=== PATIENT | male | born 1960 | race Caucasian/White ===

== ENCOUNTER 2021-11-06 04:05 | Emergency (ER) | payer OTHER ==
[~2021-11-06] VITALS: Ht 180.3 cm; Wt 99.8 kg
[2021-11-06 04:37] VITALS: BP_SYST 154
--- NOTE | 2021-11-06 04:42 | NUR ---
Patient triaged and placed in waiting room. VS checked and patient appears in no acute distress at this time. Accompanied by self , awaiting available bed, and MD notified of need for MSE.
--- NOTE | 2021-11-06 04:45 | NUR ---
Patient ambulatory to bed 1 for evaluation and treatment
[2021-11-06] MEDS ORDERED: LOSA100T3 PO (04:46)
--- NOTE | 2021-11-06 04:46 | NUR ---
ER at bedside examining patient.
[2021-11-06] MEDS ORDERED: LIP20 PO (04:47)
[2021-11-06] MEDS ORDERED: METF-834 PO (04:47)
--- NOTE | 2021-11-06 04:47 | NUR ---
Pt seen at bedside verbalized c/o being concerned RE: 'his BP being higher than normal, and a concern for posible cardiac envolvement'. Rounded w/ MD present, VS retaken WNL, pending MD disposition.
[2021-11-06 05:10] VITALS: BP_SYST 132
--- NOTE | 2021-11-06 05:10 | NUR ---
Patient given written and verbal discharge instructions and verbalizes understanding. ER MD discussed with patient the results and treatment provided. Patient in stable condition. ID arm band removed. No Rx given. Patient educated on BP med management and to follow up with PMD. Pain Scale 0/10. Opportunity for questions provided and answered.
== END 2021-11-06 05:10 | disposition home or self-care (01) ==
LOC: SED 04:05
DX: I10 Essential (primary) hypertension (principal); E11.9 Type 2 diabetes mellitus without complications; F41.9 Anxiety disorder, unspecified; Z79.899 Other long term (current) drug therapy
CPT/HCPCS: 82962; 99283

== ENCOUNTER 2023-06-18 12:44 | Emergency (ER) | payer OTHER ==
[~2023-06-18] VITALS: Ht 180.3 cm; Wt 100.7 kg
[~2023-06-18 12:44] MED LIST: LIP20 PO; LOSA-415 PO; METF-834 PO
[2023-06-18 12:45] VITALS: BP_SYST 168; PULSE 109; RESP 18; TEMP 97.7; O2SAT 97
[2023-06-18] MEDS ORDERED: cefTRIAXone 250 MG VIAL ONE (13:44)
[2023-06-18] MEDS: cefTRIAXone 500 MG in D5W 50 ML IV ONE (13:54)
[2023-06-18 14:18] LABS: BASOPHILS % (AUTO) 0.6 % (0.0-2.0); EOSINOPHILS # (AUTO) 0.3 K/uL (0.0-0.4); EOSINOPHILS % (AUTO) 4.4 % (0.0-4.0); HEMATOCRIT 44.8 % (36-54); MEAN CORPUSCULAR HEMOGLOBIN 29 pg (27-31); MEAN CORPUSCULAR HGB CONC 33 % (32-36); MEAN CORPUSCULAR VOLUME 87 fL (79.0-98.0); MONOCYTES # (AUTO) 0.4 K/uL (0.0-1.0); MONOCYTES % (AUTO) 4.8 % (1.7-9.3); NEUTROPHILS # (AUTO) 4.5 K/uL (1.8-7.7); NEUTROPHILS % (AUTO) 62.2 % (40.0-70.0); PLATELET COUNT (AUTO) 289 K/uL (130-430); RED BLOOD CELL COUNT(AUTO) 5.16 MIL/uL (4.2-6.2); RED CELL DISTRIBUTION WIDTH 14.6 % (9.0-15.0); WHITE BLOOD COUNT (AUTO) 7.3 K/uL (4.8-10.8)
[2023-06-18 14:28] LABS: BILIRUBIN,URINE NEGATIVE (NEGATIVE); BLOOD, URINE NEGATIVE (NEGATIVE); CLARITY/URINE CLEAR (CLEAR); COLOR,URINE YELLOW (YELLOW); GLUCOSE,URINE NEGATIVE (NEGATIVE); KETONES,URINE NEGATIVE (NEGATIVE); LEUKOCYTE ESTERASE ,URINE NEGATIVE (NEGATIVE); NITRITE, URINE NEGATIVE (NEGATIVE); PROTEIN URINE NEGATIVE (NEGATIVE); UROBILINOGEN,URINE 0.2 (0.2-1.0)
[2023-06-18 14:37] LABS: ALANINE AMINOTRANSFERASE 27 U/L (12-78); ALBUMIN 3.7 g/dL (3.4-4.8); ANION GAP 9 (5-15); ASPARTATE AMINOTRANSFERASE 11 U/L (10-37); BILIRUBIN,DIRECT 0.2 mg/dL (0.0-0.3); CALCIUM 9.1 mg/dL (8.4-11.0); CARBON DIOXIDE 27 mmol/L (23-29); CHLORIDE 105 mmol/L (98-107); GFR AFRICAN AMERICAN 88 mL/min (>90); GLUCOSE 122 mg/dL (74-106); POTASSIUM 3.9 mmol/L (3.5-5.1); SODIUM SERUM 141 mmol/L (136-145); TOTAL BILIRUBIN 0.9 mg/dL (0.0-1.0); TOTAL PROTEIN, SERUM 7.6 g/dL (6.4-8.3); UREA NITROGEN, BLOOD 16 mg/dL (8-21)
[2023-06-18 14:39] LABS: GFR NON AFRICAN-AMERICAN 72 mL/min (>90)
[2023-06-18 14:40] LABS: INFLUENZA TYPE A Negative (NEGATIVE); INFLUENZA TYPE B NEGATIVE (NEGATIVE)
[2023-06-18 15:17] LABS: PROTHROMBIN TIME 10.1 SECS (9.5-12.5)
[2023-06-18 15:21] LABS: CREATINE KINASE, TOTAL 58 U/L (39-308); FREE T4 (FREE THYROXINE) 1.1 ng/dL (0.6-1.6); THYROID STIMULATING HORMONE 1.92 uIu/mL (0.34-4.82)
[2023-06-18 15:54] LABS: ACETONE, SERUM NEGATIVE (NEGATIVE)
[2023-06-18 16:45] VITALS: BP_SYST 138; PULSE 81; RESP 19; TEMP 98.6; O2SAT 98
== END 2023-06-18 16:45 | disposition home or self-care (01) ==
LOC: SED 12:44
DX: R53.1 Weakness (principal); E11.9 Type 2 diabetes mellitus without complications; I10 Essential (primary) hypertension; Z79.899 Other long term (current) drug therapy; Z20.822 Contact with and (suspected) exposure to COVID-19
CPT/HCPCS: 99285; 96365; 70450; 71045; 87426; 80076; 80048; 81001; 82009; 82550; 84439; 84443; 85025; 85610; 85730; 87040; 87086; 84484; 36415; 82948; 83605; 81003; 87804 ×2; J0696